=== PATIENT | female | born 1985 | race Caucasian/White ===

== ENCOUNTER → 2018-06-01 | Day surgery (SDC) | payer BC ==
[2018-05-27 14:26] LABS: BASOPHILS # (AUTO) 0.1 (0.0-0.1); BASOPHILS % 0.6 % (0.0-1.0); EOSINOPHILS # (AUTO) 0.1 (0.0-0.4); EOSINOPHILS % 1.2 % (0.0-6.0); HEMATOCRIT 38.8 % (34.2-44.1); HEMOGLOBIN 12.4 g/dL (12.0-16.0); LYMPHOCYTES # (AUTO) 1.8 (1.0-3.2); LYMPHOCYTES % 20.4 % (18.0-39.1); MEAN CORPUSCULAR HEMOGLOBIN 27.4 pg (28-32); MEAN CORPUSCULAR VOLUME 85.7 fL (81-99); MONOCYTES # (AUTO) 0.5 (0.2-0.8); MONOCYTES % 5.3 % (4.4-11.3); NEUTROPHILS # (AUTO) 6.4 (2.1-6.9); NEUTROPHILS % 72.3 % (38.7-80.0); PLATELET COUNT 279 x10e3/uL (140-360); RED BLOOD COUNT 4.53 x10e6/uL (3.6-5.1); RED CELL DISTRIBUTION WIDTH 13.8 % (11.7-14.4)
[~2018-06-01] MED LIST: ACETAMINOPHEN 1000 MG/100 ML IV ONE; BUPIVACAINE 0.25%/EPI 30ML SDV INJ ONE; DEXAMETHASONE SOD PHOS INJ 4 MG/ML VIAL ONE; FENTANYL CITRATE/PF 100MCG/2 ML INJ ONE; GLYCOPYRROLATE INJ 1MG/ 5 ML SYR ONE; KETOROLAC TROMETHAMINE 30 MG/ML VIAL ONE; LIDOCAINE HCL 2% LOCAL INJ 5 ML SDV VIAL INJ ONE; MEPERIDINE HCL INJ 50 MG/ML INJ ONE; MIDAZOLAM HCL 2 MG/2 ML VIAL ONE; MORPHINE SULFATE INJ 4 MG/ML INJ ONE; NEOSTIGMINE 5 MG/5ML SYR ONE; ONDANSETRON HCL INJ 2 MG/ML VIAL ONE; PROPOFOL IV EMULSION 10 MG/ML 20 ML VIAL ONE; ROCURONIUM BROMIDE 10 MG/ML 5ML VIAL ONE; SEVOFLURANE INHAL SOLN 250 ML PEN BTL ONE
[2018-06-01 12:10] VITALS: BP 106/74
--- NOTE | 2018-06-01 14:41 | Operative Report ---
DATE OF PROCEDURE: June 01, 2018 PREOPERATIVE DIAGNOSES 1. Pelvic pain. 2. Dyspareunia. POSTOPERATIVE DIAGNOSES 1. Pelvic pain. 2. Dyspareunia. PROCEDURES 1. Laparoscopy. 2. Ablation of endometriosis. 3. Lysis of adhesions. COMPLICATIONS: None. ESTIMATED BLOOD LOSS: Minimal. The patient was taken to the OR. General anesthesia was placed. The patient was prepped and draped in a sterile fashion. Placed in the dorsal lithotomy position for rectal examination under anesthesia. applied to the umbilicus inverting the umbilicus. Infraumbilical skin incision was made with the scalpel. Subcutaneous tissue dissected with the hemostat. A 5 mm bladeless trocar and cannula with the scope inside was passed through the abdominal wound to the abdominal cavity. Trocar was removed. Scope was inserted through the sleeve and into the abdominal cavity. Good visualization of the pelvis. The patient was placed in Trendelenburg position. Other port was made. Two ports were made on the right side of the abdomen after making a 5 mm skin incision with the scalpel. A 5 mm bladeless trocar and cannula was passed through the abdominal wound to the abdominal cavity. Trocar was removed using a grasper. The following findings, the uterus was excessively anteverted with adhesions between the bladder and the whole anterior wall of the uterus due to the previous C-sections. Right ovary looks normal. Right tube looks normal. Some endometriotic spots on the infundibulopelvic ligament on the right side. The left ovary is enlarged and has small follicular cysts on it, as well as adhesions between the ovary and left fallopian tube. Also, there was stone like foreign body in the pouch of Brooks that was about 1 cm. Upper abdomen was grossly normal. The foreign body looked like a stone and was removed with the grasper. Was crushed during its removal and was sent to pathology in pieces. Endometriosis was cauterized using the Bovie. Also, division of the adhesions between the ovary and left fallopian tube and excision of what looks like endometriotic sacculations next to the ovary were excised and sent to pathology. Suction irrigation with warm saline. Instruments were removed from the abdomen. The abdomen was deflated. The patient tolerated the procedure well. Laps, instruments and needle counts were correct times 2 at the end of the procedure. Skin was closed with Dermabond. Marcaine with epinephrine was injected subcutaneously. The patient tolerated the procedure well. Job#: [id number]
== END | disposition home or self-care (01) ==
LOC: OR 07:14
PROVIDERS: ATTEND Obstetrics & Gynecology
DX: N80.8 Other endometriosis (principal); N83.02 Follicular cyst of left ovary; N73.6 Female pelvic peritoneal adhesions (postinfective); N94.10 Unspecified dyspareunia; T19.3XXA Foreign body in uterus, initial encounter; X58.XXXA Exposure to other specified factors, initial encounter; Z01.812 Encounter for preprocedural laboratory examination
CPT/HCPCS: 36415; 49329; 58662; 81025; 84702; 85025; 88304; 88305; J0131; J1100; J1885; J2001; J2175; J2250; J2270; J2405; J2704; J3490

== ENCOUNTER 2019-02-09 17:53 | Inpatient (IN) | payer BC ==
[~2019-02-09] VITALS: Ht 160 cm; Wt 74.4 kg
--- OUTSIDE RECORDS SUMMARY | 2019-02-09 17:57 | XMS REPORT ---
Author [facility] Address Unknown Phone Unavailable Care Team Providers Care Cushion Sewer Name Role Phone Unavailable Unavailable Payers Payer Name Policy Type Policy Number Effective Date Expiration Date Problems This patient has no known problems. Allergies, Adverse Reactions, Alerts Allergy Name Allergy Type Status Severity Reaction(s) Onset Date Inactive Date Treating Clinician Comments No Known Allergies DA Active U 2012-12-27 00:00:00 Medications This patient has no known medications.
[2019-02-09] MEDS ORDERED: ONDANSETRON HCL INJ 2MG/ML 2ML 2 MG/ML VIAL IV ONE (18:09)
[2019-02-09] MEDS ORDERED: MORPHINE SULFATE INJ 4 MG/ML INJ 1ML IV ONE (18:09)
[2019-02-09] MEDS ORDERED: SODIUM CHLORIDE 0.9% 1000ML 1,000 ML IV STA (18:09)
[2019-02-09 19:02] LABS: BASOPHILS % 0.5 % (0.0-1.0); EOSINOPHILS # (AUTO) 0.2 (0.0-0.4); HEMOGLOBIN 10.8 g/dL (12.0-16.0); LYMPHOCYTES # (AUTO) 2.1 (1.0-3.2); MEAN CORPUSCULAR HEMOGLOBIN 26.4 pg (28-32); MEAN CORPUSCULAR HGB CONC 30.9 g/dL (31-35); MEAN CORPUSCULAR VOLUME 85.6 fL (81-99); MONOCYTES # (AUTO) 0.4 (0.2-0.8); NEUTROPHILS # (AUTO) 2.8 (2.1-6.9); NEUTROPHILS % 50.1 % (38.7-80.0); PLATELET COUNT 278 x10e3/uL (140-360); RED BLOOD COUNT 4.09 x10e6/uL (3.6-5.1); RED CELL DISTRIBUTION WIDTH 14.6 % (11.7-14.4)
[2019-02-09 19:03] LABS: BILIRUBIN,URINE NEGATIVE (NEGATIVE); CLARITY,URINE SL CLOUDY (CLEAR); COLOR,URINE YELLOW (YELLOW); KETONES,URINE NEGATIVE (NEGATIVE); LEUKOCYTE ESTERASE ,URINE TRACE (NEGATIVE); NITRITE,URINE NEGATIVE (NEGATIVE); PROTEIN,URINE DIPSTICK TRACE (NEGATIVE); URINE UROBILINOGEN 0.2 mg/dL (0.2 - 1)
[2019-02-09 19:15] LABS: BACTERIA,URINE MANY /HPF; EPITHELIAL CELLS,URINE MODERATE /LPF; PREGNANCY TEST, URINE NEGATIVE (NEGATIVE)
[2019-02-09 19:21] LABS: ALANINE AMINOTRANSFERASE 11 IU/L (0-55); ALBUMIN 3.9 g/dL (3.5-5.0); ALBUMIN/GLOBULIN RATIO 1.2 (0.8-2.0); ALKALINE PHOSPHATASE 48 IU/L (40-150); ANION GAP 13.8 mmol/L (8-16); BLOOD UREA NITROGEN 15 mg/dL (7-26); BUN/CREATININE RATIO 20 (6-25); CALCIUM 9.4 mg/dL (8.4-10.2); CARBON DIOXIDE 24 mmol/L (22-29); CHLORIDE 106 mmol/L (98-107); CREATININE, SERUM 0.76 mg/dL (0.57-1.11); EST GLOMERULAR FILTRATION RATE > 60 ML/MIN (60-); GLUCOSE 96 mg/dL (74-118); LIPASE 22 U/L (8-78); MAGNESIUM 2.1 MG/DL (1.3-2.1); POTASSIUM 3.8 mmol/L (3.5-5.1); SODIUM 140 mmol/L (136-145)
[2019-02-09] MEDS ORDERED: SODIUM CHLORIDE 0.9% 50ML 50 ML ONE (19:39)
[2019-02-09] MEDS ORDERED: IOPAMIDOL 370 MG/ML 200 ML INFUS..BTL INJ ONE (19:39)
[2019-02-09] MEDS ORDERED: CEFTRIAXONE SOD 1 GM/NS 50 ML 50 ML IV ONE (19:45)
--- NOTE | 2019-02-09 20:16 | Diagnostic Imaging Report ---
A single frontal view of the chest. HISTORY: Pain COMPARISON: None available. DISCUSSION: Portable technique, limits sensitivity of the exam. Soft tissue attenuation partially limits sensitivity of the exam. Tubes/Lines: None Lungs and pleura: The lungs are well inflated. No evidence of a consolidative pneumonia or pulmonary alveolar edema. No definite pleural effusion or pneumothorax is identified. Heart and mediastinum: The cardiomediastinal silhouette appear(s) unremarkable. Bones and soft tissues: Appear unremarkable, given this limited exam. IMPRESSION: No acute radiographic abnormality. Signed by: Dr. Juan Jose Morales D.O., M.M.M. on 02/09/2019 8:12 PM
--- NOTE | 2019-02-09 20:22 | Diagnostic Imaging Report ---
EXAM: CT of the abdomen and pelvis WITH contrast HISTORY: Abdominal pain, bilateral flank pain, constipation, umbilical pain COMPARISON: None. TECHNIQUE: The abdomen and pelvis were scanned utilizing a multidetector helical scanner. Coronal and sagittal reformats are provided. PROTOCOL: Routine IV CONTRAST: 100 cc of Isovue-370. ORAL CONTRAST: None, which limits sensitivity and specificity of the exam. RADIATION DOSE: Total DLP: 302.05 mGy*cm Estimated effective dose: (DLP x 0.015 x size factor) Dose modulation, iterative reconstruction, and/or weight based adjustment of the mA/kV was utilized to reduce the radiation dose to as low as reasonably achievable. COMPLICATIONS: None FINDINGS: LOWER THORAX: Unremarkable. HEPATOBILIARY: No mass. Mild intrahepatic biliary dilation and prominence of the common bile duct, most likely reservoir effect. Metallic clips in the right upper quadrant of the abdomen are compatible with prior cholecystectomy. SPLEEN: No splenomegaly. PANCREAS: No focal masses or ductal dilatation. ADRENALS: No discrete adrenal nodule. KIDNEYS/URETERS: No hydronephrosis, stones, or definite solid mass lesions. PELVIC ORGANS/BLADDER: The visualized pelvic organs appear unremarkable. GI TRACT: Scattered colonic diverticuli, most notably the distal descending colon. Focal fat stranding about a distal descending colon diverticulum. The appendix is normal. PERITONEUM / RETROPERITONEUM: No free air or fluid. LYMPH NODES: No pathologically enlarged lymph node. VESSELS: Unremarkable. BONES and JOINTS: No aggressive osseous lesion or acute fracture. Probable small right iliac bone island. SOFT TISSUES: Bilateral breast implants. Small umbilical hernia, without evidence of associated vascular compromise. IMPRESSION: 1. Acute distal descending colon diverticulitis. 2. Status post cholecystectomy and probable reservoir effect in the absence of laboratory evidence of biliary obstruction. Signed by: Dr. Juan Jose Morales D.O., M.M.M. on 02/09/2019 8:19 PM
[2019-02-09] MEDS ORDERED: MORPHINE SULFATE 2 MG/ML SYR 1ML IV PRN (20:45)
[2019-02-09] MEDS: CIPROFLOXACIN 400 MG/D5W 200ML 200 ML IV SCH (21:09)
[2019-02-09 21:49] VITALS: BP 117/76
[2019-02-09] MEDS: SODIUM CHLORIDE 0.9% 1000ML 1,000 ML IV SCH (22:40)
[2019-02-09 22:55] VITALS: BP 118/79
--- NOTE | 2019-02-09 23:00 | NUR ---
RECEIVED PATIENT AOX4, NO SIGNS OF DISTRESS NOTED. FAMILY MEMBER AT BEDSIDE, IV FLUIDS RUNNING AT ORDERED RATE. PATIENT COMPLAINS OF PAIN AT 8 AND WILL BE MEDICATED ORDERED. BED IS LOCKED IN LOWEST POSITION, BOTH SIDE RAILS ARE UP, CALL LIGHT WITHIN EASY REACH, WILL CONTINUE TO MONITOR.
[2019-02-09 23:06] VITALS: BP 118/79
[2019-02-10] VITALS (7 sets, daily range): BP systolic 103–115; BP diastolic 58–78
[2019-02-10] MEDS ORDERED: METRONIDAZOLE 500MG/NS 100ML IV SCH
[2019-02-10] MEDS: ONDANSETRON HCL INJ 2MG/ML 2ML 2 MG/ML VIAL IV PRN ×4 (00:28→21:05)
[2019-02-10] MEDS: METRONIDAZOLE 500MG/NS 100ML 100 ML IV SCH ×4 (00:28→18:24)
[2019-02-10] MEDS: MORPHINE SULFATE INJ 4 MG/ML INJ 1ML IV PRN ×2 (00:28→05:59)
[2019-02-10] MEDS ORDERED: MORPHINE SULFATE 2 MG/ML SYR 1ML IV PRN (08:30)
[2019-02-10] MEDS ORDERED: MORPHINE SULFATE INJ 4 MG/ML INJ 1ML IV PRN (09:00)
[2019-02-10] MEDS: SODIUM CHLORIDE 0.9% 1000ML 1,000 ML IV SCH ×2 (09:02→20:47)
[2019-02-10] MEDS: HYDROCODONE/APAP 5MG-325MG TAB PO PRN (09:07)
[2019-02-10] MEDS: CIPROFLOXACIN 400 MG/D5W 200ML 200 ML IV SCH ×2 (09:55→20:47)
[2019-02-10] MEDS ORDERED: ACETAMINOPHEN 325 MG TAB PO PRN (17:00)
--- NOTE | 2019-02-10 19:00 | NUR ---
received report from day nurse. patient is resting comfortably in bed. bed is in lowest position and call light is within reach. will continue to monitor patient.
[2019-02-11] VITALS: BP 113/72
[2019-02-11] MEDS: METRONIDAZOLE 500MG/NS 100ML 100 ML IV SCH ×4 (00:32→17:07)
[2019-02-11 04:00] VITALS: BP 109/75
[2019-02-11 04:19] LABS: BASOPHILS % 1.1 % (0.0-1.0); EOSINOPHILS # (AUTO) 0.1 (0.0-0.4); EOSINOPHILS % 2.2 % (0.0-6.0); HEMATOCRIT 32.5 % (34.2-44.1); HEMOGLOBIN 10.3 g/dL (12.0-16.0); LYMPHOCYTES # (AUTO) 1.6 (1.0-3.2); LYMPHOCYTES % 44.9 % (18.0-39.1); MEAN CORPUSCULAR HEMOGLOBIN 26.5 pg (28-32); MEAN CORPUSCULAR HGB CONC 31.7 g/dL (31-35); MEAN CORPUSCULAR VOLUME 83.5 fL (81-99); MONOCYTES # (AUTO) 0.3 (0.2-0.8); MONOCYTES % 7.4 % (4.4-11.3); NEUTROPHILS # (AUTO) 1.6 (2.1-6.9); NEUTROPHILS % 44.1 % (38.7-80.0); PLATELET COUNT 242 x10e3/uL (140-360); RED BLOOD COUNT 3.89 x10e6/uL (3.6-5.1); RED CELL DISTRIBUTION WIDTH 14.2 % (11.7-14.4)
[2019-02-11 04:44] LABS: ANION GAP 14.6 mmol/L (8-16); BLOOD UREA NITROGEN 6 mg/dL (7-26); BUN/CREATININE RATIO 9 (6-25); CALCIUM 8.6 mg/dL (8.4-10.2); CARBON DIOXIDE 21 mmol/L (22-29); CHLORIDE 108 mmol/L (98-107); CREATININE, SERUM 0.69 mg/dL (0.57-1.11); EST GLOMERULAR FILTRATION RATE > 60 ML/MIN (60-); GLUCOSE 82 mg/dL (74-118); LIPASE 9 U/L (8-78); POTASSIUM 3.6 mmol/L (3.5-5.1); SODIUM 140 mmol/L (136-145)
[2019-02-11] MEDS ORDERED: CIPRO500 MG PO ×2 (05:53→05:58)
[2019-02-11] MEDS ORDERED: FLAGYL500 MG PO (05:53)
[2019-02-11] MEDS ORDERED: DICYCLOMINE HCL20 MG PO (05:53)
[2019-02-11] MEDS: DICYCLOMINE HCL 20 MG TAB PO SCH ×4 (06:45→17:07)
[2019-02-11 07:39] VITALS: BP 108/55
--- NOTE | 2019-02-11 08:00 | NUR ---
RECEIVED PT EARLIER RESTING QUIETLY DURING BEDSIDE ROUNDS
[2019-02-11] MEDS: PANTOPRAZOLE 40 MG 10ML VIAL IV SCH ×2 (09:00→17:08)
[2019-02-11] MEDS: CIPROFLOXACIN 400 MG/D5W 200ML 200 ML IV SCH (09:00)
[2019-02-11] MEDS ORDERED: DICYCLOMINE HCL 20 MG TAB PO SCH (09:00)
[2019-02-11] MEDS: HYDROCODONE/APAP 5MG-325MG TAB PO PRN (09:08)
--- NOTE | 2019-02-11 10:00 | NUR ---
PT MEDICATED EARLIER WITH NORCO PO; PT PAIN LEVEL HAS DECREASED AND FEELING BETTER AT PRESENT.
[2019-02-11 11:48] VITALS: BP 104/56
[2019-02-11] MEDS ORDERED: SODIUM CHLORIDE 0.9% 250ML 250 ML ONE (12:55)
[2019-02-11] MEDS: SODIUM CHLORIDE 0.9% 1000ML 1,000 ML IV SCH ×2 (14:30→14:36)
[2019-02-11 15:55] VITALS: BP 116/66
--- NOTE | 2019-02-11 20:08 | Discharge Summary ---
ADMISSION DIAGNOSES: Colitis, urinary tract infection, present on admission. DISCHARGE DIAGNOSES: Colitis, urinary tract infection, present on admission. HISTORY: Endometriosis, ovarian cyst. SURGICAL HISTORY: Cholecystectomy, x1. FAMILY HISTORY: The patient's dad and grandpa had diabetes and cancer, and the patient's grandpa had a stroke. SOCIAL HISTORY: Occasional alcohol use. HOSPITAL COURSE: A 33-year-old female complains of constant sharp abdominal pain with associated abdominal distention since Wednesday. She had one bout of diarrhea on Wednesday, then another BM on Wednesday after using the suppository. She had a fever of 99.7. She denies nausea, vomiting, and diarrhea. She has also had a poor appetite. On admission, chest x-ray was negative. CT of the abdomen and pelvis showed scattered colonic diverticula, most notably in the distal descending colon. The patient was started on Cipro and Bactrim. The UA appeared that the patient had a urine infection, but the culture was not showing any growth. The patient is tolerating diet and pain is controlled. She will discharge home with Cipro, Flagyl, and Bentyl. The patient will follow up with Dr. Geller in about a month for a colonoscopy. Vital signs stable. The patient is afebrile. The patient understands discharge instructions and agrees to plan. Dictated by Ethel Durham NP MD ANITHA Boudreaux/SANDRAL /[id number]
== END 2019-02-11 19:01 | disposition home or self-care (01) | DRG 392 ==
LOC: ER 17:53 → ERHOLD 20:47 → MED/SURG3 21:49
PROVIDERS: ADMIT Internal Medicine; ATTEND Internal Medicine
DX: K57.30 Diverticulosis of large intestine without perforation or abscess without bleeding (principal); N39.0 Urinary tract infection, site not specified; K52.9 Noninfective gastroenteritis and colitis, unspecified; Z90.49 Acquired absence of other specified parts of digestive tract; R12 Heartburn
CPT/HCPCS: 36415; 71045; 74177; 80048; 80053; 81001; 81025; 83690; 83735; 85025; 87086; 96361; 99284; J0696; J2270; J2405; J7030; J7050; Q9967

== ENCOUNTER → 2019-04-17 | Outpatient (CLI) | payer BC ==
[~2019-04-17] MED LIST changes: -ACETAMINOPHEN 1000 MG/100 ML IV ONE; -BUPIVACAINE 0.25%/EPI 30ML SDV INJ ONE; +CIPRO500 MG PO; -DEXAMETHASONE SOD PHOS INJ 4 MG/ML VIAL ONE; +DIATRIZOATE MEGL/DIATRIZOA SOD 30 ML BTL PO ONE; +DICYCLOMINE HCL20 MG PO; -FENTANYL CITRATE/PF 100MCG/2 ML INJ ONE; +FLAGYL500 MG PO; -GLYCOPYRROLATE INJ 1MG/ 5 ML SYR ONE; +IOPAMIDOL 370 MG/ML 200 ML INFUS..BTL INJ ONE; -KETOROLAC TROMETHAMINE 30 MG/ML VIAL ONE; -LIDOCAINE HCL 2% LOCAL INJ 5 ML SDV VIAL INJ ONE; -MEPERIDINE HCL INJ 50 MG/ML INJ ONE; -MIDAZOLAM HCL 2 MG/2 ML VIAL ONE; -MORPHINE SULFATE INJ 4 MG/ML INJ ONE; -NEOSTIGMINE 5 MG/5ML SYR ONE; -ONDANSETRON HCL INJ 2 MG/ML VIAL ONE; -PROPOFOL IV EMULSION 10 MG/ML 20 ML VIAL ONE; -ROCURONIUM BROMIDE 10 MG/ML 5ML VIAL ONE; -SEVOFLURANE INHAL SOLN 250 ML PEN BTL ONE; +SODIUM CHLORIDE 0.9% 50ML 50 ML ONE
--- NOTE | 2019-04-17 19:13 | Diagnostic Imaging Report ---
CT Abdomen And Pelvis with Intravenous Contrast INDICATION: ^[id number] ^1700 ^LOWER ABD PAIN TECHNIQUE: Thin collimation axial images obtained from the diaphragm to the level of the pubic symphysis following the uneventful administration of 100 cc of low osmolar, nonionic intravenous contrast. Oral contrast was administered. Dose reduction techniques used: Automated exposure control, adjustment of the mAs and/or kVp according to patient size, standardized low-dose protocol, and/or iterative reconstruction technique. RADIATION DOSE: Total DLP: 373.67 mGy*cm Estimated effective dose: (DLP x 0.015 x size factor) mSv CTDIvol has been reviewed. It is below the limits set by the Radiation Protocol Committee (RPC). COMPARISON: CT abdomen/pelvis 02/09/2019. ABDOMEN FINDINGS: Lung Bases: Clear. The visualized portions of the mediastinum are normal. Liver: Mild steatosis. No evidence for mass. Gallbladder: Absent. Biliary tree: Common bile duct is distended to 7 mm. No intrahepatic biliary ductal dilatation. Pancreas: Normal attenuation without mass or ductal dilatation. Spleen: Normal in size. No evidence of mass. Adrenal Glands: No evidence for mass. Kidneys: Right: Normal enhancement. No soft tissue mass. No hydronephrosis. Left: Normal enhancement. No soft tissue mass. No hydronephrosis. Lymph Nodes: No enlarged abdominal or periaortic lymph nodes. Aorta: Normal in diameter PELVIS FINDINGS: Bowel: Stomach: Contains enteric contrast and appears normal. Small Bowel: Enteric contrast present throughout. No mural thickening or dilatation. Large Bowel: Contains a small amount of enteric contrast in the proximal colon. No dilatation. Diverticulosis coli is present. No associated inflammation. Appendix: Normal appendix. Bladder: Normal. Uterus: Present and retroflexed of the fundus. There is a corpus luteum in the right ovary. Peritoneum/retroperitoneum: No free fluid or fluid collection. Bones: Unremarkable for age. Soft tissues: Bilateral breast prostheses. IMPRESSION: 1. Diverticulosis coli. No evidence for bowel obstruction or inflammation. Normal appendix. 2. Corpus luteum in the right ovary. 3. Cholecystectomy. Signed by: Dr. Kiarra Lieberman MD on 04/17/2019 7:09 PM
== END ==
LOC: CT 16:13
PROVIDERS: ATTEND Internal Medicine Gastroenterology
DX: R10.30 Lower abdominal pain, unspecified (principal)
CPT/HCPCS: 74177; 81025; Q9967

== ENCOUNTER → 2023-05-12 | Day surgery (SDC) | payer BC ==
[~2023-05-12] MED LIST changes: -DIATRIZOATE MEGL/DIATRIZOA SOD 30 ML BTL PO ONE; -IOPAMIDOL 370 MG/ML 200 ML INFUS..BTL INJ ONE; +LACTATED RINGER'S 1,000 ML ONE; +LIDOCAINE HCL 2% LOCAL INJ 5 ML SDV VIAL INJ ONE; +PROPOFOL IV EMULSION 10 MG/ML 20 ML VIAL ONE; -SODIUM CHLORIDE 0.9% 50ML 50 ML ONE
[2023-05-12 15:24] VITALS: TEMP 97.8
[2023-05-12 15:52] VITALS: BP 116/75; PULSE 71; RESP 18; O2SAT 100
[2023-05-12 16:06] LABS: WBC,FECAL (FECAL LACTOFERRIN) POSITIVE (NEGATIVE)
[2023-05-13 13:15] LABS: C-REACTIVE PROTEIN 92 mg/L (0-10)
[2023-05-15 08:13] LABS: ENDOMYSIAL ANTIBODIES, IGA Negative (Negative)
[2023-05-15 20:14] LABS: IMMUNOGLOBULIN A 268 mg/dL (87-352); TISSUE TRANSGLUTAMINASE IGA AB <2 U/mL (0-3)
== END | disposition home or self-care (01) ==
LOC: OR 11:58
PROVIDERS: ATTEND Internal Medicine Gastroenterology
DX: K21.9 Gastro-esophageal reflux disease without esophagitis (principal); K63.5 Polyp of colon; K29.50 Unspecified chronic gastritis without bleeding; K52.9 Noninfective gastroenteritis and colitis, unspecified; K57.92 Diverticulitis of intestine, part unspecified, without perforation or abscess without bleeding; K20.90 Esophagitis, unspecified without bleeding; K44.9 Diaphragmatic hernia without obstruction or gangrene; K62.89 Other specified diseases of anus and rectum; K64.8 Other hemorrhoids
CPT/HCPCS: 43239; 45380; 45385; 82784; 83516; 83630; 83993; 86140; 86256; 87045; 87177; 87324; 87328; 87449; C9113; J2001; J2704; J7121; 45378